=== PATIENT | male | born 1975 | race Caucasian/White ===

== ENCOUNTER 2017-12-21 14:15 | Emergency (ER) | payer SELFPAY ==
[~2017-12-21] VITALS: Ht 172.7 cm; Wt 82.6 kg
[2017-12-21] MEDS ORDERED: BACTRIM,SEPT1 TABLET PO (16:00)
[2017-12-21] MEDS ORDERED: BENADRYL25 MG PO (16:00)
[2017-12-21] MEDS ORDERED: NORCO 5/3251 TABLET PO (16:00)
[2017-12-21 16:11] VITALS: BP 127/86
== END 2017-12-21 16:14 | disposition home or self-care (01) ==
LOC: RME 14:15 → EME 14:15 → RME 16:14
DX: L08.0 Pyoderma (principal); B95.8 Unspecified staphylococcus as the cause of diseases classified elsewhere
CPT/HCPCS: 99281; 99283